=== PATIENT | female | born 1955 | race Caucasian/White ===

== ENCOUNTER → 2019-06-27 | Outpatient (CLI) | payer MEDICARE ==
--- NOTE | 2019-06-29 21:02 | PE ---
Nuclear medicine PET/CT HISTORY: Lung carcinoma, initial Patient received 12.5 mCi F-18 FDG intravenously in delayed scanning was performed from the skull bas e to the mid thighs. Localization and attenuation correction CT scan was performed. No current comparisons submitted Neck and chest: There is no supraclavicular or cervical adenopathy. No mediastinal, axillary, or navneet r adenopathy. There is no pleural pericardial effusion. There is a soft tissue nodule in the right up per lobe measuring approximately less than 1 cm, no associated hypermetabolic uptake. Minimal patchy density present at the posterior lateral right lung base is pleural-based. Thickened parenchymal band s may be indicative of underlying interstitial lung disease. No adrenal mass. No retroperitoneal adenopathy or liver mass. No suspicious hypermetabolic uptake. No ascites. Uterus and adnexal structures are not seen. Osseous structures are within normal limits. IMPRESSION: No suspicious hypermetabolic uptake. Findings in the chest is described.
== END | disposition home or self-care (01) ==
LOC: RADPETMAIN 11:02
PROVIDERS: ATTEND Internal Medicine Critical Care Medicine
DX: R91.1 Solitary pulmonary nodule (principal)
CPT/HCPCS: 78815; A9552

== ENCOUNTER → 2021-09-09 | Outpatient (CLI) | payer MEDICARE ==
--- NOTE | 2021-09-09 10:02 | PE ---
EXAMINATION TYPE: PET CT fusion skull to thigh DATE OF EXAM: 09/09/2021 COMPARISON: Prior PET/CT June 27, 2019 HISTORY: Solitary pulmonary nodule, recent abnormal CT. TECHNIQUE: Following the intravenous administration of 10.23 mCi of F-18 FDG, whole body images are performed from the skull base to the midthigh. Images are reviewed on the computer in the coronal, a xial, and sagittal planes. Reconstructed rotating images are created on independent workstation and reviewed on the computer. A localization and attenuation correction CT is performed in conjunction with the PET scan. Blood glucose level equals 98. SCAN: Initial Scan FINDINGS: SKULL BASE AND NECK: No new areas of abnormal hypermetabolic uptake. CHEST, MEDIASTINUM, AND HILAR REGION: Background mild underlying emphysematous changes redemonstrated . Grossly stable 9 mm right upper lobe nodule remains ametabolic axial image 69. More prominent perip heral nodular consolidation or less likely nodule measuring 3.3 x 2.3 cm in the posterior right lower lobe is mildly hypermetabolic favoring postinflammatory etiology. No additional areas of abnormal hypermetabolic uptake. ABDOMEN AND PELVIS: Normal excretion. No new suspicious areas of abnormal hypermetabolic uptake. No a drenal mass is noted. OSSEOUS STRUCTURES: No new suspicious areas of abnormal hypermetabolic uptake. OTHER CT: Atherosclerotic and ectatic abdominal aorta redemonstrated. Facet arthropathy in the lower lumbar spine is again seen. Uterus is surgically absent. IMPRESSION: Stable ametabolic 9 mm right upper lobe nodule. Worsening mildly hypermetabolic posterior right lower lobe nodular consolidation favors infectious or inflammatory etiology etiology. Correlat e clinically. Consider short-term follow-up CT in 2-3 months time to reassess based on clinical corre lation.
== END | disposition home or self-care (01) ==
LOC: RADPETMAIN 06:26
PROVIDERS: ATTEND Internal Medicine Critical Care Medicine
DX: R91.1 Solitary pulmonary nodule (principal)
CPT/HCPCS: 78815; A9552

== ENCOUNTER → 2022-12-15 | Outpatient (CLI) | payer MEDICARE ==
[2022-12-15 14:07] LABS: African American GFR (CKD) >90 (>60 ml/min/1.73 sqM); Blood Urea Nitrogen 14 mg/dL (7-17); Non-African American GFR(CKD) >90 (>60 ml/min/1.73 sqM)
--- NOTE | 2022-12-15 15:01 | CT ---
EXAMINATION TYPE: CT chest w con DATE OF EXAM: 12/15/2022 COMPARISON: PET/CT fusion 09/09/2021 HISTORY: f/u lung nodule. CT DLP: 260.0 mGycm Automated exposure control for dose reduction was used. TECHNIQUE: CT scan of the chest is performed with IV Contrast, patient injected with 90 mL of Isovue 300. MIP I mages are created on CT scanner and reviewed. 3D reconstructed images are created on an independent w orkstation and reviewed. FINDINGS: There is a stable well-circumscribed 10 to 11 mm nodule in the right upper lobe. There are persistent partially consolidative ill-defined density in the right lower lobe, superior se gment in the subpleural location. Given its persistence question of bronchoalveolar carcinoma should be considered. Biopsy might be indicated and clinical correlation is recommended. There are mild emphysematous changes. There are no suspicious masses or nodules in the left lung. There is no pleural effusion or pneumothorax. The great vessels chest are normal is no mediastinal, hilar or axillary adenopathy. Limited scanning through the upper abdomen reveals no gross abnormality. No focal osseous lesions are seen. IMPRESSION: 1. Persistent ill-defined consolidative/masslike density in the superior segment of the right lower l obe which was seen on the prior study dating back to 09/09/2021. There may be slight interval worsening . Neoplasm such as bronchoalveolar carcinoma should be considered. Clinical correlation is recommende d. Further workup is warranted. 2. Stable right upper lobe pulmonary nodule which is likely benign given its stability and low metabo lic uptake on prior PET scan.
== END | disposition home or self-care (01) ==
LOC: RADCTMAIN 13:11
PROVIDERS: ATTEND Internal Medicine Critical Care Medicine
DX: R91.1 Solitary pulmonary nodule (principal); R91.8 Other nonspecific abnormal finding of lung field
CPT/HCPCS: 82565; 84520; 71260; 36415; Q9967

== ENCOUNTER 2023-01-18 10:38 | Day surgery (SDC) | payer MEDICARE ==
[2023-01-16 10:40] VITALS: BMI 23.9
[~2023-01-18 10:38] MED LIST: DEXAMETHASONE SOD PHOSPHATE 4 MG/ML 1 ML VIAL IV ONE; HYDROmorphone 0.5 MG/0.5 ML SYRINGE IVP PRN; LACTATED RINGERS 1,000 ML IV SCH; LIDOCAINE 1% (10MG/ML) FOR IV START INTRADERMA PRN; ONDANSETRON 4 MG/2 ML VIAL IVP ONE; droPERidol 5 MG/2 ML VIAL IVP ONE
--- NOTE | 2023-01-18 11:44 | CT ---
EXAMINATION TYPE: CT chest wo con DATE OF EXAM: 01/18/2023 COMPARISON: 12/15/2022 HISTORY: ION bronch solitary pulmonary nodule CT DLP: 234.80 mGycm. Automated Exposure Control for Dose Reduction was Utilized. TECHNIQUE: CT scan of the thorax is performed without IV contrast. FINDINGS: LUNGS: Diffuse emphysematous changes. There is interlobular septal thickening compatible with pulmona ry fibrosis. Within the right upper lobe there is a 1.2 cm mass. There is consolidative changes involving the right lower lobe could be postinflammatory or postinfect ious. No sizable pleural effusion or pneumothorax. Pleural-based thickening at the right lung base fa vored over subpleural nodule. There is biapical pleural thickening or scarring with a 4 mm subpleural nodule.. MEDIASTINUM: Lack of IV contrast is noted to limit evaluation for mediastinal and especially hilar ad enopathy. There are no definitive greater than 1 cm hilar or mediastinal lymph nodes. No cardiomega ly or pericardial effusion is seen. Atherosclerotic change of the aorta including the region of the a ortic valve.. No significant Coronary artery calcification noted. OTHER: Small hiatal hernia. Thickening of the left adrenal gland. A mild prominence of the extrahepat ic common bile duct. Atrophic and degenerative change of the spine and there is diffuse demineralizat ion which could be on the basis of osteopenia. Underlying metastases not excluded. IMPRESSION: 1. There is a 1.2 cm mass in the right upper lobe slightly increased in size from prior exam. 2. Persistent right lower lobe consolidation could be on the basis of a sequela of pneumonia or infla mmatory changes. Underlying neoplastic process is not excluded. 3. Intra and extrahepatic biliary ductal dilation. 4. Pulmonary fibrosis with changes of COPD. Follow-up recommendations for incidental pulmonary nodules are per [employer] or [employer].
[2023-01-18] MEDS ORDERED: PROPOFOL 10 MG/ML 20 ML VIAL IV ONE (12:35)
[2023-01-18] MEDS ORDERED: ROCURONIUM 10 MG/ML (5 ML VIAL) IV ONE (12:35)
[2023-01-18] MEDS ORDERED: GLYCOPYRROLATE 0.2 MG/ML 2 ML VIAL ONE (12:35)
[2023-01-18] MEDS ORDERED: NEOSTIGMINE 1 MG/ML 10 ML VIAL ONE (12:35)
[2023-01-18] MEDS ORDERED: MIDAZOLAM 2 MG/2 ML VIAL ONE (12:35)
[2023-01-18] MEDS ORDERED: fentaNYL (PF) 50 MCG/ML 2 ML AMP ONE (12:35)
[2023-01-18] MEDS ORDERED: LIDOCAINE 2% (PF) 20 MG/ML 5 ML VIAL ONE (12:35)
[2023-01-18] MEDS ORDERED: SUCCINYLCHOLINE CHLORIDE 200 MG/10 ML VIAL IV ONE (12:35)
[2023-01-18] MEDS ORDERED: PHENYLEPHRINE-0.9% NACL SYG 1,000 MCG/10 ML SYRINGE ONE (12:35)
--- NOTE | 2023-01-18 14:20 | P.PCN ---
Date of Procedure: 01/18/23 Operative Findings: Operative Findings: Preoperative Diagnosis: Right upper lobe nodule Right lower lobe consolidation Postoperative Diagnosis: Right upper lobe nodule Right lower lobe consolidation Procedure(s) Performed: Flexible bronchoscopy Robotic-assisted bronchoscopy and addition to radial ultrasound evaluation of the lung right upper lone nodule and right lower lobe consolidation Robotic-assisted test monitor needle aspirate, transbronchial biopsies, transbronchial brushing of the Right upper lobe mass in addition to a bronchioloalveolar lavage Robotic-assisted test monitor needle aspirate, transbronchial biopsies, transbronchial brushing of the right lower lobe consolidation in addition to a bronchioloalveolar lavage Anesthesia: DARINELA Surgeon: Gregory Ledesma Estimated Blood Loss (ml): 0 Pathology: other Condition: stable Disposition: same day Operative Findings: A physical exam was performed. Informed consent was obtained from the patient after explaining all the risks (pneumothorax, life threatening bleeding, infection and adverse effects due to medications), benefits and alternatives to the procedure which the patient appeared to understand and so stated. The patient was connected to the monitoring devices. General anesthesia was induced and the patient was intubated by anesthesia. A final timeout was performed and the procedure confirmed by the attending staff bronchoscopist. The bronchoscope was inserted and the airway examined. The flexible bronchoscope was removed and the robotic bronchoscope was inserted. Registration was completed. I next guided the robotic bronchoscope using the navigation system into the Right upper lobe apical segment segment. Once in proper position, the bronchoscope was frozen. The radial EBUS probe was placed through the bronchoscope and confirmed abnormal u/s images vs normal lung. A needle was placed through the working channel and under fluoroscopic guidance, we sampled the area thought to have the mass twice. We then used a cloud biopsy pattern with ultrasound confirmation for 2 additional passes with the needle. U/S evaluation was then used to reconfirm location. Forceps were next introduced through working channel and extended the appropriate distance and 3 transbronchial biopsies were performed using fluoroscopic guidance. The u/s probe was then reinserted to confirm location. When confirmed this process was repeated for a total of 6 transbronchial biopsies. After reassessment with EBUS, a brush was placed through the extendable working channel for 1 pass with fluoroscopic guidance. U/S evaluation was then used to confirm location. 20ml of saline was then instilled into the area of the lesion. The robotic bronchoscope was removed and the airway inspected with a flexible bronchoscope and 10 ml of effluent from the BAL was collected. I next guided the robotic bronchoscope using the navigation system into the right lower lobe posterior segment. Once in proper position, the bronchoscope was frozen. The radial EBUS probe was placed through the bronchoscope and confirmed abnormal u/s images vs normal lung. U/S evaluation was then used to reconfirm location. Forceps were next introduced through working channel and extended the appropriate distance and 3 transbronchial biopsies were performed using fluoroscopic guidance. The u/s probe was then reinserted to confirm location. When confirmed this process was repeated for a total of 6 transbronchial biopsies. After reassessment with EBUS, a brush was placed through the extendable working channel for 1 pass with fluoroscopic guidance. U/S evaluation was then used to confirm location. 40 ml of saline was then instilled into the area of the lesion. The robotic bronchoscope was removed and the airway inspected with a flexible bronchoscope and 10 ml of effluent from the BAL was collected. The airways were inspected and cleared of secretions and blood. Fluoroscopic check for pneumothorax was negative upon completion of the procedure. There was 0 ml blood loss with the procedure. FINDINGS: 1.The airways appeared normal 2 Successful navigation, ultrasonographic identification, and biopsies of Right upper lobe nodule and right lower lobe consolidation RECOMMENDATIONS: Await pathology and cytology results The referring physician will be alerted to the results when available. The patient was advised to follow up with the referring physician with the biopsy results Patient will be called with results.
[2023-01-18 14:44] VITALS: TEMP 97
--- NOTE | 2023-01-18 14:45 | FL ---
EXAMINATION TYPE: FL bronchoscopy DATE OF EXAM: 01/18/2023 CLINICAL HISTORY: flouroscopy TECHNIQUE: Fluoroscopy. COMPARISON: None. FINDINGS: Fluoroscopic guidance was provided during procedure performed. Total dose area product (DA P) in uGy*m?, mGy*cm? (or similar: 11.492. IMPRESSION: As Above.
--- NOTE | 2023-01-18 14:54 | XR ---
EXAMINATION TYPE: XR chest 1V DATE OF EXAM: 01/18/2023 COMPARISON: 01/18/2023 HISTORY: post bronch TECHNIQUE: Single frontal view of the chest is obtained. FINDINGS: Diffuse emphysematous changes. There is interlobular septal thickening compatible with pul monary fibrosis. Within the right upper lobe there is a 1.2 cm mass. There is consolidative changes i nvolving the right perihilum. No sizable pleural effusion or pneumothorax. Pleural-based thickening a t the right lung base favored over subpleural nodule. There is biapical pleural thickening or scarrin g with a 4 mm subpleural nodule. No pneumothorax. IMPRESSION: COPD with right upper lobe nodule. Right perihilar consolidation.
[2023-01-18 15:11] VITALS: RESP 18
[2023-01-18 15:36] VITALS: BP 128/67; PULSE 69
== END 2023-01-18 15:50 | disposition home or self-care (01) ==
LOC: ORWHC2ENDO 10:38
PROVIDERS: ATTEND Internal Medicine Critical Care Medicine
DX: C34.31 Malignant neoplasm of lower lobe, right bronchus or lung (principal); J84.10 Pulmonary fibrosis, unspecified; J44.9 Chronic obstructive pulmonary disease, unspecified
CPT/HCPCS: 87798 ×3; 87496; 87498; 87529; 88305; 88342; 87502; 87634; 88341; 87070; 87205; 87116; 87102; 87206; 87635; 71045; 71250; 31628; 31629; 31623; 31624; J2250; J0330; J1100; J2710; J2405; J3010; J2704; J2001; J2371; S2900

== ENCOUNTER → 2023-02-16 | Outpatient (CLI) | payer MEDICARE ==
--- NOTE | 2023-02-19 14:20 | PE ---
EXAMINATION TYPE: PET CT fusion skull to thigh DATE OF EXAM: 02/16/2023 COMPARISON: CT chest 01/18/2023 Prior PET/CT: 09/09/2021 HISTORY: Lung cancer TECHNIQUE: Following the intravenous administration of 10.89 mCi of F-18 FDG, whole body images are performed from the skull base to the midthigh. Images are reviewed on the computer in the coronal, a xial, and sagittal planes. Reconstructed rotating images are created on independent workstation and reviewed on the computer. A localization and attenuation correction CT is performed in conjunction with the PET scan. DLP: 504.59 mGycm SCAN: Subsequent Blood glucose: 107 mg/dL Average Mediastinum SUV: 2.27 Average Liver SUV: 3.06 FINDINGS: NECK: Some mild uptake is in the neck, diminished from comparison. THORAX: Intermediate uptake is within the tiny nodule right upper lobe, image 89, SUV 1.45. Previous SUV 0.64 There is some intermediate uptake within a consolidation posterior lateral right midlung, example ramy ge 102, SUV 2.06. Previous SUV 3.07 ABDOMEN: No abnormal uptake PELVIS: No abnormal uptake OSSEOUS STRUCTURES: No abnormal uptake LOCALIZATION CT: Right upper lobe nodule is evident. Consolidation in the posterior lateral right mid lung is evident. COMPARISON: Some mild increase in the nodule may be present. The uptake within the posterior right fariba ng density is diminished. IMPRESSION: 1. Intermediate uptake within the posterior right consolidation and right upper lobe nodule. The cons olidation is diminished in SUV although slight increase is evident within the nodule. 2. No suspicious changes to suggest metastatic or recurrent lung cancer.
== END | disposition home or self-care (01) ==
LOC: RADPETMAIN 13:08
PROVIDERS: ATTEND Internal Medicine Critical Care Medicine
DX: R91.1 Solitary pulmonary nodule (principal); C34.90 Malignant neoplasm of unspecified part of unspecified bronchus or lung
CPT/HCPCS: 78815; A9552

== ENCOUNTER → 2023-03-09 | Outpatient (CLI) | payer MEDICARE ==
[2023-03-09 12:34] LABS: INR 0.9 (<1.2); Partial Thromboplastin Time 26.3 sec (22.0-30.0); Prothrombin Time 10.1 sec (10.0-12.5)
[2023-03-09 15:32] LABS: Appearance,Urine Turbid (Clear); Bilirubin,Urine Negative (Negative); Blood,Urine Small (Negative); Color,Urine Yellow (Yellow); Ketones,Urine Negative (Negative); Nitrite,Urine Positive (Negative); Specific Gravity,Urine 1.016 (1.001-1.030)
[2023-03-09 15:57] LABS: Basophils # (A) 0.08 X 10*3/uL (0.00-0.10); Basophils % (A) 0.7 %; Eosinophils % (A) 1.8 %; HCT 40.3 % (37.2-46.3); Lymphocytes # (A) 3.76 X 10*3/uL (0.90-5.00); Lymphocytes % (A) 34.6 %; MCH 29.7 pg (27.0-32.0); MCHC 32.3 g/dL (32.0-37.0); Mean Platelet Volume 9.4 FL (9.5-12.2); Monocytes # (A) 0.83 X 10*3/uL (0.20-1.00); Monocytes % (A) 7.6 %; NRBC Per 100 WBC 0 X 10*3/uL (0.00-0.01); Neutrophils # (A) 5.99 X 10*3/uL (1.80-7.70); Neutrophils % (A) 55.1 %; Platelet Count 387 X 10*3/uL (140-440); RBC 4.38 X 10*6/uL (4.10-5.20); RDW 12.7 % (11.5-14.5); WBC 10.88 X 10*3/uL (4.50-10.00)
[2023-03-09 16:11] LABS: Bacteria,Urine 4+ (None Seen)
[2023-03-09 16:29] LABS: Blood Urea Nitrogen 13.2 mg/dL (9.0-27.0); Carbon Dioxide 26.7 mmol/L (21.6-31.8); Chloride 103 mmol/L (96-109); Glucose 103 mg/dL (70-110); Potassium 4.3 mmol/L (3.5-5.5); Sodium 141 mmol/L (135-145)
== END | disposition home or self-care (01) ==
LOC: LABPAT 10:45
PROVIDERS: ATTEND Thoracic Surgery (Cardiothoracic Vascular Surgery)
DX: Z01.812 Encounter for preprocedural laboratory examination (principal); C34.90 Malignant neoplasm of unspecified part of unspecified bronchus or lung; R58 Hemorrhage, not elsewhere classified; R06.00 Dyspnea, unspecified; Z79.899 Other long term (current) drug therapy
CPT/HCPCS: 80051; 81001; 82565; 82947; 84520; 85025; 85610; 85730; 86850; 86900; 86901; 87086

== ENCOUNTER 2023-03-15 05:56 | Inpatient (IN) | payer MEDICARE ==
[2023-03-08 10:06] VITALS: BMI 24.4
[2023-03-15] MEDS ORDERED: LIDOCAINE 1% (10MG/ML) FOR IV START INTRADERMA PRN (06:15)
[2023-03-15] MEDS: LACTATED RINGERS 1,000 ML IV SCH (06:45)
[2023-03-15] MEDS: MIDAZOLAM 2 MG/2 ML VIAL IV PRN (06:54)
[2023-03-15] MEDS: ONDANSETRON 4 MG/2 ML VIAL IVP ONE (06:57)
[2023-03-15] MEDS: DEXAMETHASONE SOD PHOSPHATE 4 MG/ML 1 ML VIAL IV ONE (06:57)
[2023-03-15] MEDS ORDERED: GLYCOPYRROLATE 0.2 MG/ML 2 ML VIAL ONE (07:25)
[2023-03-15] MEDS ORDERED: fentaNYL (PF) 50 MCG/ML 2 ML AMP ONE (07:25)
[2023-03-15] MEDS ORDERED: LIDOCAINE 1% INJ 10MG/ML (20 ML MDV) ONE (07:25)
[2023-03-15] MEDS ORDERED: DEXAMETHASONE SOD PHOSPHATE 4 MG/ML 1 ML VIAL ONE (07:25)
[2023-03-15] MEDS ORDERED: PHENYLEPHRINE-0.9% NACL SYG 1,000 MCG/10 ML SYRINGE ONE (07:25)
[2023-03-15] MEDS ORDERED: ROPIVACAINE 5 MG/ML 30 ML VIAL ONE (07:25)
[2023-03-15] MEDS ORDERED: MIDAZOLAM 2 MG/2 ML VIAL ONE (07:25)
[2023-03-15] MEDS ORDERED: PROPOFOL 10 MG/ML 20 ML VIAL IV ONE (07:25)
[2023-03-15] MEDS ORDERED: SUCCINYLCHOLINE CHLORIDE 200 MG/10 ML VIAL IV ONE (07:25)
[2023-03-15] MEDS ORDERED: LABETALOL 5 MG/ML VIAL MDV ONE (07:25)
[2023-03-15] MEDS ORDERED: ROCURONIUM 10 MG/ML (5 ML VIAL) IV ONE (07:25)
[2023-03-15] MEDS ORDERED: NEOSTIGMINE 1 MG/ML 10 ML VIAL ONE (07:25)
[2023-03-15] MEDS ORDERED: SODIUM CHLORIDE 0.9% (PF) 10 ML VIAL ONE (07:25)
[2023-03-15] MEDS ORDERED: KETAMINE HCL IN 0.9 % NACL 50 MG/5 ML SYRINGE ONE (07:25)
[2023-03-15] MEDS: BUPIVACAINE (PF) 0.5% 30 ML VIAL SQ ONE ×3 (08:17→09:46)
[2023-03-15] MEDS: HYDROmorphone 0.5 MG/0.5 ML SYRINGE IVP PRN (10:52)
[2023-03-15] MEDS ORDERED: IPRATROPIUM-ALBUTEROL 3 ML NEB IH PRN (11:16)
[2023-03-15] MEDS ORDERED: OXYBUTYNIN XL 5 MG TAB.ER.24 PO PRN (11:16)
[2023-03-15] MEDS ORDERED: METOCLOPRAMIDE 5 MG/ML 2 ML VIAL IVP PRN (11:16)
[2023-03-15] MEDS ORDERED: bisacodyL 10 MG SUPP RECTAL PRN (11:16)
[2023-03-15] MEDS ORDERED: ONDANSETRON 4 MG/2 ML VIAL IVP PRN (11:16)
[2023-03-15] MEDS: MEPERIDINE 50 MG/ML SYRINGE IVP ONE (11:25)
[2023-03-15] MEDS: IPRATROPIUM-ALBUTEROL 3 ML NEB IH SCH (12:19)
[2023-03-15] MEDS: DEXTROSE 5%-0.45% NACL 1,000 ML IV SCH (12:31)
[2023-03-15] MEDS: KETOROLAC 15 MG/ML 1 ML VIAL IVP SCH (12:37)
--- NOTE | 2023-03-15 12:48 | XR ---
EXAMINATION TYPE: XR chest 1V DATE OF EXAM: 03/15/2023 COMPARISON: 01/18/2023 HISTORY: Status post lobectomy TECHNIQUE: Single frontal view of the chest is obtained. FINDINGS: Right-sided chest tube with less than 5% right. Underlying COPD and chronic lung disease. Elevated right hemidiaphragm. Subsegmental changes at the lung bases favor atelectasis or scarring. M ay be an additional pneumothorax component along the inferior medial aspect of the right hemithorax. Volume loss compatible with patient's history of right lower lobectomy. Interstitial changes suggest a component of chronic interstitial pulmonary fibrosis. Favor UIP type. Arthropathy of the shoulders and diffuse osteopenia. IMPRESSION: 1. Postsurgical changes with small right-sided pneumothorax. 2. Basilar atelectasis favored
[2023-03-15 12:51] LABS: HCT 40.2 % (34.0-46.0); HGB 12.8 gm/dL (11.4-16.0); Hypochromasia Slight; MCH 30.7 pg (25.0-35.0); MCHC 31.9 g/dL (31.0-37.0); MCV 96.3 fL (80.0-100.0); Mean Platelet Volume 7.6; Platelet Count 353 k/uL (150-450); RBC 4.17 m/uL (3.80-5.40); RDW 12.9 % (11.5-15.5)
--- NOTE | 2023-03-15 14:07 | P.OP ---
Date of Procedure: 03/15/23 Preoperative Diagnosis: Lung mass right lower lobe consistent with carcinoma Postoperative Diagnosis: Same Procedure(s) Performed: Robotic-assisted thoracoscopic right lower lobectomy with mediastinal lymph node dissection Anesthesia: JR Surgeon: Abelardo Lorenzo Agency Manager #1: Neeraj Delcid Estimated Blood Loss (ml): 20 IV fluids (ml): 1,600 Urine output (ml): 250 Pathology: other (Right lower lobe lung with frozen section of bronchial margin; lymph node stations R4, level 7, R8, R9, R 10, R 11 all for permanent section) Condition: stable Disposition: PACU Indications for Procedure: 67-year-old female with enlarging right lower lobe peripheral mass on serial computed tomography scan. PET scan showed uptake in the mass and no other abnormal uptake. CT-guided bronchoscopy demonstrated adenocarcinoma. EBUS was negative. Patient is ECOG level II. Patient was seen in consultation and offered surgery versus chemoradiation. She opted for surgery. Discussion was held as to whether we would try to additionally wedge this out in case it proved to be noninvasive carcinoma although it there was concern that due to the location it would be very difficult to wedge out. Consent for lobectomy was obtained. Operative Findings: Lung compliance was poor. Fissures were incomplete. The mass was somewhat diffuse and impossible to wedge out. Lymphadenopathy was present and appeared to be benign and anthracotic. Frozen section of the bronchial margin returned negative. Description of Procedure: Patient was brought to the operating room and placed supine on the operating table. General anesthesia was induced and double-lumen endotracheal tube was placed. Mcarthur catheter was placed. Tube was positioned with fiberoptic bronchoscopy and secured. Patient was turned to the left lateral decubitus position and appropriately positioned for robotic lobectomy. Right chest was sterilely prepped and draped. After appropriate timeout, the initial incision was made in the ninth interspace in the anterior axillary line and a 8 mm robotic port was placed. After confirming placement in the pleural space, CO2 insufflation was begun. 212 mm ports were placed anterior and posterior to the initial port in a similar interspace. A second 8 mm port was placed in the fifth interspace posteriorly. Working port was placed between the initial camera port and the more posterior 12 mm port at the level of the diaphragm. The robot was docked. After noting that it would not really be possible to perform a wedge resection, we did some dissection in the fissure particularly anteriorly. We then took down the inferior pulmonary ligament and continued dissection posteriorly up to the level of the azygos vein. Lymph nodes stations [id number] and level 7 were dissected out and sent for permanent section. We now encircled the inferior pulmonary vein and ligated and divided it with a robotic vascular stapler. Dissection was carried onto the bronchus. The lower lobe bronchus was dissected out. Surrounding R 11 lymph nodes were resected and sent for permanent section. Once we encircled the lower lobe bronchus it was ligated and divided with a robotic read stapler. The main branch the pulmonary artery was now visualized. Some further R 11 lymph nodes were resected around it and we encircled the main branch of the PDA to the lower lobe and ligated and divided it with a robotic vascular stapler. The good visualization of the superior segmental branch of the pulmonary artery and encircled that began resecting further R 11 lymph nodes. This was also ligated and divided with a robotic vascular stapler. We now were able to complete the fissures with multiple firings of the robotic blue stapler. Lobectomy specimen was placed in an Endo Catch bag and pulled back toward the working port. Dissection was continued at the superior aspect of the hilum and the R 10 lymph nodes were resected. Dissection was carried further above the azygos vein and the R4 lymph nodes were resected. This point the robot was undocked. A working port incision was enlarged and the lobectomy specimen removed in the Endo Catch bag and sent for frozen section of the bronchial margin which returned negative. The chest was irrigated with warm water and checked for air leaks which were negative. Good hemostasis was noted throughout. 28-Syrian chest tube was placed through separate stab incision and positioned posterior apically. Was secured with 0 Ethibond suture. Incisions were now closed with layers of Vicryl suture. Skin glue and dry sterile dressings were applied. Rib blocks were performed posteriorly at the level of the incisions with half percent Marcaine. Patient was turned supine and extubated and transferred to recovery room in stable condition.
[2023-03-15] MEDS: HEPARIN SODIUM,PORCINE 5,000 UNIT/ML 1 ML VIAL SQ SCH (15:37)
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
--- NOTE | 2023-03-15 20:34 | P.ANPRN ---
Procedure Note - Anesthesia - Nerve Block Performed Right Erector Spinae Single Time Out Performed: Yes Date of Procedure: 03/15/23 Procedure Start Time: Procedure Stop Time: Location of Patient: PreOp Indication: Acute Post-Operative Pain, Requested by Surgeon Sedation Type: Sedate with meaningful contact maintained Preparation: Sterile Prep Position: Sitting Needle Types: Pajunk Needle Gauge: 18 Ultrasound used to visualize needle placement: Yes Ultrasound used to observe medication spread: Yes Blood Aspirated: No Pain Paresthesia on Injection Noted: No Resistance on Injection: Normal Image Stored and Saved: Yes Events: Uneventful and Well Tolerated (Ropivacaine 0.5% 15 cc plus normal saline 10 cc plus dexamethasone 4 mg)
[2023-03-15] MEDS: FORMOTEROL FUMARATE 20 MCG/2 ML NEBU INHALATION SCH (21:33)
[2023-03-15] MEDS: MORPHINE SULFATE ER 30 MG TABLET PO SCH (22:11)
[2023-03-15] MEDS: lisinopriL 5 MG TAB PO SCH (22:52)
[2023-03-15] MEDS: ATORVASTATIN 10 MG TAB PO SCH (22:52)
[2023-03-15] MEDS: oxyCODONE-APAP 10-325MG 1 EACH TAB PO PRN (23:12)
[2023-03-16] MEDS: PANTOPRAZOLE 40 MG TABLET PO SCH (06:22)
--- NOTE | 2023-03-16 08:24 | XR ---
EXAMINATION TYPE: XR chest 1V portable DATE OF EXAM: 03/16/2023 COMPARISON: 03/15/2023 HISTORY: Postop TECHNIQUE: Single frontal view of the chest is obtained. FINDINGS: Near-complete resolution of tiny right-sided pneumothorax. Volume loss compatible with rec ent surgery. Chest tube in position with basilar atelectasis. Underlying COPD. Arthropathy of the hugo ulders with calcific tendinosis on the right suspected. Degenerative change of the spine. IMPRESSION: 1. Postoperative change with near complete resolution of tiny right-sided pneumothorax.
[2023-03-16 08:41] LABS: African American GFR (CKD) 86 (>60 ml/min/1.73 sqM); Anion Gap 5 mmol/L; Blood Urea Nitrogen 22 mg/dL (7-17); Calcium 8.7 mg/dL (8.4-10.2); Carbon Dioxide 25 mmol/L (22-30); Chloride 106 mmol/L (98-107); Glucose 106 mg/dL (74-99); Non-African American GFR(CKD) 75 (>60 ml/min/1.73 sqM); Potassium 3.9 mmol/L (3.5-5.1); Sodium 136 mmol/L (137-145)
[2023-03-16] MEDS: CYANOCOBALAMIN 500 MCG TAB PO SCH (09:17)
[2023-03-16] MEDS: CHOLECALCIFEROL 125 MCG (5000 IU) TABLET PO SCH (09:17)
[2023-03-16] MEDS: ASCORBIC ACID 500 MG TAB PO SCH (09:17)
[2023-03-16 09:23] LABS: Basophils % (A) 0 %; Eosinophils % (A) 0 %; HCT 36.7 % (34.0-46.0); Lymphocytes % (A) 19 %; MCH 30.7 pg (25.0-35.0); MCHC 32.6 g/dL (31.0-37.0); MCV 94.1 fL (80.0-100.0); Mean Platelet Volume 7.7; Monocytes % (A) 7 %; Neutrophils # (A) 11.3 k/uL (1.3-7.7); Neutrophils % (A) 73 %; Platelet Count 352 k/uL (150-450); RDW 12.7 % (11.5-15.5); WBC 15.5 k/uL (3.8-10.6)
--- NOTE | 2023-03-16 09:45 | P.PN ---
Subjective Progress Note Date: 03/16/23 Principal diagnosis: Lung mass right lower lobe consistent with carcinoma. Previous medical history of hypertension, hyperlipidemia, fibromyalgia, and chronic tobacco dependence Robotic-assisted thoracoscopic right lower lobectomy with mediastinal lymph node dissection The patient was seen and examined this morning sitting up in recliner on the cardiac stepdown unit in no acute distress. Remains in sinus rhythm, hemodynamically stable. States her postsurgical pain is well-controlled on current medication regimen, denies shortness of breath. Currently on room air with oxygen saturation in the high 90s. Right pleural chest tube present to [facility] with good tidaling, no airleak present and minimal thin serous drainage overnight. Chest x-ray reviewed. No other new concerns. Objective - Vital Signs Vital signs: Vital Signs Temp 98.2 F 03/16/23 03:42 Pulse 68 03/16/23 08:46 Resp 16 03/16/23 08:46 BP 132/61 03/16/23 03:42 Pulse Ox 97 03/16/23 08:32 FiO2 Intake & Output 03/15/23 03/16/23 03/16/23 18:59 06:59 18:59 Intake Total 2440 240 Output Total 352 50 Balance 2088 -50 240 Intake: IV 1900 Oral 540 240 Output: Chest Tube Drainage 82 50 Chest Tube Lateral Chest 82 50 Urine 150 Estimated Blood Loss 120 Other: Voiding Method Toilet - Exam CONSTITUTIONAL: Appears comfortable, cooperative, no acute distress RESPIRATORY: Lungs sounds diminished bilaterally. Respirations even, nonlabored. Currently on room air with oxygen saturation 97%. Able to achieve 750 mL on incentive spirometry. Strong cough. CARDIOVASCULAR: S1, S2 present. Regular rate and rhythm, sinus rhythm on telemetry. Palpable peripheral pulses bilaterally. No edema present. No calf pain or tenderness noted. SCDs present. GASTROINTESTINAL: Abdomen soft, nontender, nondistended. Active bowel sounds present 4 quadrants. Tolerating diet. Positive flatus GENITOURINARY: Continues to void clear, yellow urine INTEGUMENTARY: Skin is warm and dry with evidence of good perfusion. Thoracic incision well approximated and covered with dry intact dressing. NEUROLOGIC: Cranial nerves II through XII intact MUSKULOSKELETAL: Able to move all extremities, strength equal bilaterally, gait normal PSYCHIATRIC: Alert and oriented to person place and time, appropriate affect, intact judgment and insight INVASIVE LINES AND TUBES: [facility], no air leak present, 50 mL thin serous drainage overnight, 350 mL since surgery - Allied health notes Allied health notes reviewed: nursing - Labs CBC & Chem 7: 03/16/23 07:31 03/16/23 07:31 Labs: Abnormal Lab Results - Last 24 Hours (Table) 03/15/23 03/16/23 03/16/23 Range/Units 12:38 07:31 07:31 WBC 18.0 H 15.5 H (3.8-10.6) k/uL Neutrophils # 11.3 H (1.3-7.7) k/uL Sodium 136 L (137-145) mmol/L BUN 22 H (7-17) mg/dL Glucose 106 H (74-99) mg/dL - Imaging and Cardiology Chest x-ray: report reviewed, image reviewed Assessment and Plan Assessment: Lung mass right lower lobe consistent with carcinoma, status post robotic assisted thoracoscopic right lower lobectomy with mediastinal lymph node dissection History of hypertension Hyperlipidemia Fibromyalgia Chronic tobacco dependence, preoperative FEV1 81% of predicted with DLCO 50% of predicted Plan: Right pleural chest tube discontinued without incident Will repeat chest x-ray in 2 hours, if stable may discharge to home Continue current medication regimen Encourage incentive spirometry use Bronchodilators per pulmonology Pain control with current medication regimen Increase activity as tolerated Smoking cessation counseling and education reviewed with the patient, she was given 1 800 QUIT-NOW hotline number Discharge planning in progress, anticipate discharge to home this afternoon versus tomorrow morning More recommendations to follow
--- NOTE | 2023-03-16 11:15 | XR ---
EXAMINATION TYPE: XR chest 2V DATE OF EXAM: 03/16/2023 COMPARISON: 03/16/2023 TECHNIQUE: PA and lateral views submitted. HISTORY: Post chest tube removal FINDINGS: Interval development of a large air-fluid level in the right lower lung. There is now a pleural refle ction at the right lung apex compatible with pneumothorax. Constellation of findings compatible hydro pneumothorax. Underlying COPD. Heart size is mildly prominent. Volume loss on the right compatible pr evious lobectomy. IMPRESSION: 1. Chest tube removal with interval development of the hydropneumothorax with a large air-fluid level seen overlying the right hemithorax.
--- NOTE | 2023-03-16 11:53 | P.PN ---
Subjective Progress Note Date: 03/16/23 This is a 67-year-old female patient who underwent a robotic assisted thoracoscopic right lower lobectomy with mediastinal lymph node dissection. The patient was recent diagnosed having right lower lobe adenocarcinoma. The patient was told to have an early stage without evidence of any mediastinal lymp hadenopathy. The patient had a preop FEV1 of 81% of predicted. Based on that, the patient was referred for lung resection. Note that her CAT scan of the chest showed a right lower lobe consolidation in addition to a 1.2 cm right upper lobe pulmonary nodule. The PET scan also showed some uptake within the right lung consolidation. The right upper lobe pulmonary nodule was biopsied in it turned out to be a hamartoma. Based on that, we will proceed with surgery. The patient is doing well for now. The patient has a right-sided chest tube in place. No significant air leak and output from the chest tube is minimal and the postop chest x-ray is showing a small right apical pneumothorax along with some atelectatic change in lung base bilaterally. The patient is currently on 2 L of oxygen by nasal cannula with a pulse ox of 98%. Communicating alert and awake. No other significant complaints otherwise for now. On today's evaluation of 03/16/2023, seen the patient for a follow-up. The patient is doing extremely well. No specific complaints. No respiratory difficulties. The chest x-ray was done this morning showed no acute abnormalities. It showed no evidence of any pneumothorax. Output from the chest tube was minimal. Based on that, the chest tube was removed by the cardio thoracic surgeon and repeat chest x-ray is to follow. Meanwhile, the patient has no specific complaints. The patient is calm and comfortable. Clinically stable and hemodynamically stable. The white cell count of 15.5 with a hemoglobin of 12 and a platelet count of 352. BUN is at 22 with a creatinine of 0.8 and his sodium level is at 136. The patient is currently postop day #1 following a right lower lobe resection. Objective - Vital Signs Vital signs: Vital Signs Temp 98.2 F 03/16/23 03:42 Pulse 68 03/16/23 08:46 Resp 16 03/16/23 08:46 BP 132/61 03/16/23 03:42 Pulse Ox 97 03/16/23 08:32 FiO2 Intake & Output 02/09/2803/16/23 03/16/23 18:59 06:59 18:59 Intake Total 2440 240 Output Total 352 50 Balance 2088 -50 240 Intake: IV 1900 Oral 540 240 Output: Chest Tube Drainage 82 50 Chest Tube Lateral Chest 82 50 Urine 150 Estimated Blood Loss 120 Other: Voiding Method Toilet - Exam General appearance the patient is calm and comfortable no acute distress. Currently on room air oxygen Head exam was generally normal. There was no scleral icterus or corneal arcus. Mucous membranes were moist. Neck was supple and without jugular venous distension, thyromegaly, or carotid bruits. Carotids were easily palpable bilaterally. There was no adenopathy. Lung sounds are diminished in the right compared to the left and the patient has a surgical wound over the right chest which is essentially dry and clean and the patient has right-sided chest tube has been removed Cardiac exam revealed the PMI to be normally situated and sized. The rhythm was regular and no extrasystoles were noted during several minutes of auscultation. The first and second heart sounds were normal and physiologic splitting of the second heart sound was noted. There were no murmurs, rubs, clicks, or gallops. Abdominal exam revealed normal bowel sounds. The abdomen was soft, non-tender, and without masses, organomegaly, or appreciable enlargement of the abdominal aorta. Examination of the extremities revealed easily palpable radial, femoral and pedal pulses. There was no cyanosis, clubbing or edema. Examination of the skin revealed no evidence of significant rashes, suspicious appearing nevi or other concerning lesions. Neurologically, the patient is awake and alert and the patient does not have any focal neurological deficit. Cranial nerves are essentially intact. - Labs CBC & Chem 7: 03/16/23 07:31 03/16/23 07:31 Labs: Abnormal Lab Results - Last 24 Hours (Table) 03/15/23 03/16/23 03/16/23 Range/Units 12:38 07:31 07:31 WBC 18.0 H 15.5 H (3.8-10.6) k/uL Neutrophils # 11.3 H (1.3-7.7) k/uL Sodium 136 L (137-145) mmol/L BUN 22 H (7-17) mg/dL Glucose 106 H (74-99) mg/dL Assessment and Plan Plan: Early stage adenocarcinoma of the lung and the patient is post robotic assisted right lower lobe lobectomy with mediastinal lymph node dissection and the patient is currently postop day # 1 the patient's preop FEV1 was in order of 81% of predicted. The right-sided chest that was removed awaiting follow-up chest x-ray. Clinically stable and the patient denies having any any respiratory difficulties at this point in time. 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 The patient also takes MS Contin 30 mg twice a day Smoking cessation counseling Will continue to follow
[2023-03-16] MEDS: FUROSEMIDE 10 MG/ML 4 ML VIAL IV STA (12:53)
[2023-03-17 03:52] VITALS: RESP 16
--- NOTE | 2023-03-17 07:15 | XR ---
EXAMINATION TYPE: XR chest 2V DATE OF EXAM: 03/17/2023 COMPARISON: 03/16/2023 HISTORY: Right hydropneumothorax follow-up TECHNIQUE: Frontal and lateral views of the chest are obtained. FINDINGS: Allowing for differences in technique, there is been no interval change in the right hydropneumothora x. There is right middle lobe atelectasis. The left lung remains clear. The heart size is normal and the vasculature is not congested. The osseous structures are intact. IMPRESSION: No change in the right hydropneumothorax and right middle lobe atelectasis.
--- NOTE | 2023-03-17 08:36 | P.DS ---
Providers Date of admission: 03/15/23 05:56 Expected date of discharge: 03/17/23 Attending physician: Abelardo Lorenzo Consults: 03/15/23 11:16 Consult Physician Routine Consulting Provider: Gregory Ledesma Consult Reason/Comments: Pulmonary Management Do you want consulting provider notified?: Yes Primary care physician: [facility] Course: FINAL DIAGNOSIS: Lung mass right lower lobe consistent with carcinoma, status post robotic assisted thoracoscopic right lower lobectomy with mediastinal lymph node dissection History of hypertension Hyperlipidemia Fibromyalgia Chronic tobacco dependence, preoperative FEV1 81% of predicted with DLCO 50% of predicted PRINCIPAL PROCEDURE: Robotic-assisted thoracoscopic right lower lobectomy with mediastinal lymph node dissection HISTORY OF PRESENT ILLNESS: This is a 67-year-old female who follows outpatient with Dr. Branch for primary care and Dr. Ledesma for pulmonology. She is a lifelong smoker and had been following with pulmonology for some time related to a groundglass infiltrate in the right lower lobe as well as a stable right upper lobe lung nodule. Recently the groundglass infiltrate enlarged and developed some more solid component to it and she underwent robotic bronchoscopy. The right upper lobe lesion was biopsied and was hematoma. The right lower lobe groundglass infiltrate with its more solid component was biopsied and shown to be adenocarcinoma. PET scan was obtained and showed only mild uptake in the tumor with SUV around 3. There was no evidence of metastasis by PET and CT scan did not demonstrate any lymphadenopathy. The patient was referred to Dr. Lorenzo from cardiothoracic surgery. She was recommended to undergo robotic assisted right lower lobectomy. The usual perioperative course was discussed in detail with the patient and her family, all risks and benefits were explained, all questions were answered, and consent was obtained to proceed with surgery. The patient was scheduled for elective surgery at the earliest possible date. HOSPITAL COURSE: The patient was brought to the hospital on 03/15/23, taken to the preoperative area, prepared in the usual fashion, and subsequently taken to the operating room where Dr. Lorenzo performed robotic assisted thoracoscopic right lower lobectomy with mediastinal lymph node dissection. Upon completion of surgery the patient was extubated and taken to the recovery room for hemodynamic monitoring. She was eventually admitted to 3 S. cardiac stepdown unit. She had no airleak in her chest tube and it was placed to waterseal the night of surgery. The following morning there was no airleak present, chest x-ray was stable and her pleural chest tube was discontinued without incident. Follow-up chest x-ray later that day as well as the following morning were stable. She remained on room air with excellent oxygen saturation, was tolerating oral diet, her pain was controlled, and she was ready to be discharged to home on postoperative day #2. She received written and verbal instruction regarding her medications, activity restrictions, signs and symptoms requiring physician notification, and follow-up appointments. Patient Condition at Discharge: Stable Plan - Discharge Summary Discharge Rx Participant: Yes New Discharge Prescriptions: Continue Ascorbic Acid [Vitamin C] 500 mg PO DAILY Cyanocobalamin (Vitamin B-12) [Vitamin B-12] 1,000 mcg PO DAILY Morphine Sulfate ER [Ms Contin] 7.5 mg PO Q12HR oxyBUTYnin chloride [oxyBUTYnin chloride ER] 5 mg PO DAILY PRN PRN Reason: Takes if not going to be home Turmeric Root Extract [Turmeric] 500 mg PO DAILY ALPRAZolam [Xanax] 0.25 mg PO DAILY PRN PRN Reason: Anxiety Cholecalciferol (Vitamin D3) [Vitamin D3 (125 MCG = 5,000 IU)] 125 mcg PO DAILY lisinopriL [Zestril] 5 mg PO HS Omeprazole 40 mg PO QAM oxyCODONE-APAP 10-325MG [Percocet 10-325 mg] 1 tab PO BID PRN PRN Reason: Pain Simvastatin 5 mg PO HS Laxative - Otc 1 tab PO DAILY PRN PRN Reason: Constipation Discharge Medication List ALPRAZolam [Xanax] 0.25 mg PO DAILY PRN 01/16/23 [History] Ascorbic Acid [Vitamin C] 500 mg PO DAILY 01/16/23 [History] Cholecalciferol (Vitamin D3) [Vitamin D3 (125 MCG = 5,000 IU)] 125 mcg PO DAILY 01/16/23 [History] Cyanocobalamin (Vitamin B-12) [Vitamin B-12] 1,000 mcg PO DAILY 01/16/23 [History] Morphine Sulfate ER [Ms Contin] 7.5 mg PO Q12HR 01/16/23 [History] Omeprazole 40 mg PO QAM 01/16/23 [History] Simvastatin 5 mg PO HS 01/16/23 [History] Turmeric Root Extract [Turmeric] 500 mg PO DAILY 01/16/23 [History] lisinopriL [Zestril] 5 mg PO HS 01/16/23 [History] oxyBUTYnin chloride [oxyBUTYnin chloride ER] 5 mg PO DAILY PRN 01/16/23 [History] oxyCODONE-APAP 10-325MG [Percocet 10-325 mg] 1 tab PO BID PRN 01/16/23 [History] Laxative - Otc 1 tab PO DAILY PRN 03/08/23 [History] Follow up Appointment(s)/Referral(s): Abelardo Lorenzo MD [STAFF PHYSICIAN] - 03/29/23 1:00 pm Mark Branch MD [Primary Care Provider] - As Needed Gregory Ledesma MD [STAFF PHYSICIAN] - 03/26/23 2:00 pm Ambulatory/Diagnostic Orders: XR chest 2V [RAD.AMB] Facility: [facility], Location: [facility] Activity/Diet/Wound Care/Special Instructions: DISCHARGE INSTRUCTIONS: 1. No driving for 2 weeks, or until physician gives their ok. 2. No lifting, pushing, or pulling more than 10 pounds for 2 weeks. The physic collette will advise of any restriction changes. 3. Continue pain control per as needed orders 4. Continue with incentive spirometry and splinting until otherwise directed by the physician. 5. Leave chest tube dressing for 48 hours. After that, remove all dressings and shower daily. 6. Routine incision care. No powders, lotions, ointments on incisions. 7. Please call surgeon/[facility] [employer] for temp greater than 101 F or purulent drainage from incisions. 8. Smoking cessation counseling and program information provided. Quitting smoking is the most important step you can take to improve your health. For additional information and assistance to quit smoking, please call the [place] tobacco quit line (1-248-SVEN-NOW/ ) or online: https://www.[place].gov/[facility]/nwdw-wy-shvaken/chronicdis eases/tobacco/qiv-oc-edsa-tobacco OBTAIN CHEST X-RAY AT THE HOSPITAL PRIOR TO APPOINTMENT WITH DR. LORENZO Discharge Disposition: HOME SELF-CARE
[2023-03-17 08:52] VITALS: BP 166/73; PULSE 71; TEMP 97.4
[2023-03-17 08:58] LABS: HCT 35.9 % (34.0-46.0); MCH 31.5 pg (25.0-35.0); MCHC 33.4 g/dL (31.0-37.0); MCV 94.3 fL (80.0-100.0); Mean Platelet Volume 7.7; Platelet Count 334 k/uL (150-450); RBC 3.81 m/uL (3.80-5.40); RDW 13.1 % (11.5-15.5); WBC 14.8 k/uL (3.8-10.6)
[2023-03-17 09:19] LABS: African American GFR (CKD) >90 (>60 ml/min/1.73 sqM); Anion Gap 8 mmol/L; Blood Urea Nitrogen 32 mg/dL (7-17); Calcium 9.2 mg/dL (8.4-10.2); Carbon Dioxide 24 mmol/L (22-30); Chloride 106 mmol/L (98-107); Glucose 137 mg/dL (74-99); Non-African American GFR(CKD) 84 (>60 ml/min/1.73 sqM); Potassium 4.2 mmol/L (3.5-5.1); Sodium 138 mmol/L (137-145)
--- NOTE | 2023-03-17 11:24 | P.PN ---
Subjective Progress Note Date: 03/17/23 This is a 67-year-old female patient who underwent a robotic assisted thoracoscopic right lower lobectomy with mediastinal lymph node dissection. The patient was recent diagnosed having right lower lobe adenocarcinoma. The patient was told to have an early stage without evidence of any mediastinal lymp hadenopathy. The patient had a preop FEV1 of 81% of predicted. Based on that, the patient was referred for lung resection. Note that her CAT scan of the chest showed a right lower lobe consolidation in addition to a 1.2 cm right upper lobe pulmonary nodule. The PET scan also showed some uptake within the right lung consolidation. The right upper lobe pulmonary nodule was biopsied in it turned out to be a hamartoma. Based on that, we will proceed with surgery. The patient is doing well for now. The patient has a right-sided chest tube in place. No significant air leak and output from the chest tube is minimal and the postop chest x-ray is showing a small right apical pneumothorax along with some atelectatic change in lung base bilaterally. The patient is currently on 2 L of oxygen by nasal cannula with a pulse ox of 98%. Communicating alert and awake. No other significant complaints otherwise for now. On today's evaluation of 03/16/2023, seen the patient for a follow-up. The patient is doing extremely well. No specific complaints. No respiratory difficulties. The chest x-ray was done this morning showed no acute abnormalities. It showed no evidence of any pneumothorax. Output from the chest tube was minimal. Based on that, the chest tube was removed by the cardio thoracic surgeon and repeat chest x-ray is to follow. Meanwhile, the patient has no specific complaints. The patient is calm and comfortable. Clinically stable and hemodynamically stable. The white cell count of 15.5 with a hemoglobin of 12 and a platelet count of 352. BUN is at 22 with a creatinine of 0.8 and his sodium level is at 136. The patient is currently postop day #1 following a right lower lobe resection. On today's evaluation of 03/17/2023, I am seeing the patient for a follow-up. The patient is doing well. No specific complaints. Surgical wound is dry clean and intact in the right-sided chest that was minimal. The chest x-ray showing his right-sided hydropneumothorax which is essentially stable and unchanged compared to yesterday. The patient remains on room air oxygen. Using incentive spirometer. No other new complaints for now. She is ambulating. Labs from [facility] shows a white cell count 14.8, hemoglobin 12 and the platelet count of 334, BUN is 32 with a creatinine 0.7 and sodium levels of 138. Objective - Vital Signs Vital signs: Vital Signs Temp 97.4 F L 03/17/23 08:27 Pulse 71 03/17/23 08:27 Resp 16 03/17/23 08:27 BP 166/73 03/17/23 08:27 Pulse Ox 97 03/17/23 08:27 FiO2 Intake & Output 03/16/23 03/17/23 03/17/23 18:59 06:59 18:59 Intake Total 480 260 Balance 480 260 Weight 74.9 kg Intake: IV 20 Invasive Line 2 10 Invasive Line 3 10 Oral 480 240 Other: Voiding Method Toilet Toilet Toilet - Exam General appearance the patient is calm and comfortable no acute distress. Currently on room air oxygen Head exam was generally normal. There was no scleral icterus or corneal arcus. Mucous membranes were moist. Neck was supple and without jugular venous distension, thyromegaly, or carotid bruits. Carotids were easily palpable bilaterally. There was no adenopathy. Lung sounds are diminished in the right compared to the left and the patient has a surgical wound over the right chest which is essentially dry and clean and the patient has right-sided chest tube has been removed Cardiac exam revealed the PMI to be normally situated and sized. The rhythm was regular and no extrasystoles were noted during several minutes of auscultation. The first and second heart sounds were normal and physiologic splitting of the second heart sound was noted. There were no murmurs, rubs, clicks, or gallops. Abdominal exam revealed normal bowel sounds. The abdomen was soft, non-tender, and without masses, organomegaly, or appreciable enlargement of the abdominal aorta. Examination of the extremities revealed easily palpable radial, femoral and pedal pulses. There was no cyanosis, clubbing or edema. Examination of the skin revealed no evidence of significant rashes, suspicious appearing nevi or other concerning lesions. Neurologically, the patient is awake and alert and the patient does not have any focal neurological deficit. Cranial nerves are essentially intact. - Labs CBC & Chem 7: 03/17/23 08:36 03/17/23 08:36 Labs: Abnormal Lab Results - Last 24 Hours (Table) 03/16/23 03/16/23 Range/Units 07:31 07:31 WBC 15.5 H (3.8-10.6) k/uL Neutrophils # 11.3 H (1.3-7.7) k/uL Sodium 136 L (137-145) mmol/L BUN 22 H (7-17) mg/dL Glucose 106 H (74-99) mg/dL Assessment and Plan Plan: Early stage adenocarcinoma of the lung and the patient is post robotic assisted right lower lobe lobectomy with mediastinal lymph node dissection and the patient is currently postop day # 2 the patient's preop FEV1 was in order of 81% of predicted. The right-sided chest that was removed awaiting follow-up chest x-ray. Clinically stable and the patient denies having any any respiratory difficulties at this point in time. The most chest x-ray following the removal of the chest tube shows a stable right-sided hydropneumothorax. Clinically asymptomatic. The findings are stable compared to yesterday. 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 There is a stable hydropneumothorax on the right. This is a postsurgical change. Right-sided chest tube was removed Patient is currently on room air oxygen Incentive spirometer Smoking cessation counseling Bronchodilators with Prudence rodriguez Pain control with Toradol and Percocet as needed. The patient also takes MS Contin 30 mg twice a day The patient to be discharged home today to be followed up with me on an outpatient basis.
== END 2023-03-17 11:12 | disposition home or self-care (01) | DRG 164 ==
LOC: 2ORMAIN 05:56 → 3SCARD 10:41
PROVIDERS: ADMIT Thoracic Surgery (Cardiothoracic Vascular Surgery); ATTEND Thoracic Surgery (Cardiothoracic Vascular Surgery)
PROC: 07B74ZX Excision of Thorax Lymphatic, Percutaneous Endoscopic Approach, Diagnostic (ICD-10-PCS; 2023-03-15)
PROC: 8E0W8CZ Robotic Assisted Procedure of Trunk Region, Via Natural or Artificial Opening Endoscopic (ICD-10-PCS; 2023-03-15)
PROC: 3E0T3BZ Introduction of Anesthetic Agent into Peripheral Nerves and Plexi, Percutaneous Approach (ICD-10-PCS; 2023-03-15)
PROC: 3E0T33Z Introduction of Anti-inflammatory into Peripheral Nerves and Plexi, Percutaneous Approach (ICD-10-PCS; 2023-03-15)
PROC: 0BTF4ZZ Resection of Right Lower Lung Lobe, Percutaneous Endoscopic Approach (ICD-10-PCS; principal; 2023-03-15 07:30)
DX: C34.31 Malignant neoplasm of lower lobe, right bronchus or lung (principal); J93.9 Pneumothorax, unspecified; Q85.9 Phakomatosis, unspecified; I10 Essential (primary) hypertension; E78.5 Hyperlipidemia, unspecified; M79.7 Fibromyalgia; G62.9 Polyneuropathy, unspecified; G89.29 Other chronic pain; F17.210 Nicotine dependence, cigarettes, uncomplicated; Z71.6 Tobacco abuse counseling
CPT/HCPCS: 64999; 71045; 71046; 80048; 85025; 85027; 88305; 88309; 88313; 88331; 94640; 94760

== ENCOUNTER → 2023-09-19 | Outpatient (CLI) | payer MEDICARE ==
--- NOTE | 2023-10-12 21:42 | CT ---
Patient: Anna Vaughan Ordering Physician: Unknown, Unknown ID: [id number] Phone, Pager: Phone: N /A Pager: N/A : [phone] Age/Gender: 67Y, F Primary Location: N/A Procedure: CT Chest w Contrast Study Date: 09/19/2023 4:40:00 PM EXAMINATION TYPE: CT angio chest CT DLP: 251 mGycm, Automated exposure control for dose reduction was used. DATE OF EXAM: 09/26/2023 9:37 AM COMPARISON: 12/15/2022, 02/16/2023 CLINICAL INDICATION: Malignant neoplasm, lung cancer TECHNIQUE/CONTRAST: CTA scan of the thorax is performed with IV Contrast, patient injected with 100 mL of Isovue 370, MIP images are created and reviewed these are created on a separate workstation.. FINDINGS: Lungs/Pleura: No evidence of focal consolidation, pleural effusion or pneumothorax. Airway: Large airways are patent. Heart: The heart is mildly enlarged for size. Atherosclerosis of the arterial vasculature. Vasculature: No evidence for intramural hematoma on noncontrast imaging. No evidence of intimal flap to suggest dissection. No aneurysm identified. Scattered atherosclerotic disease. Mediastinum: Rightward shift of the mediastinum. Right midlung pulmonary nodule measuring 11 mm . Sub carinal lymph node measuring 16 mm as well as a right low paratracheal lymph node measuring 9 mm in s hort axis. Which is not seen on prior PET/CT 02/16/2023. Musculoskeletal: No acute osseous abnormalities Soft Tissues/lymph nodes: Unremarkable. Lower neck: No significant findings. Upper Abdomen: No significant findings. IMPRESSION: 1. Increased size of subcarinal lymph node and right low paratracheal lymph node compared to 02/16/19 24 findings concerning for recurrence. 2. Improved aeration of the right lung likely representing infection/inflation on 02/16/2023. 3. Stable right upper lung pulmonary nodule measuring 10 mm given differences in measuring technique . 4. Chronic interstitial changes throughout the lungs. 5. Postsurgical changes of the right lung with rightward mediastinal shift.
== END | disposition home or self-care (01) ==
LOC: RADCTMAIN 15:00
PROVIDERS: ATTEND Internal Medicine Critical Care Medicine
DX: C34.90 Malignant neoplasm of unspecified part of unspecified bronchus or lung (principal); R91.1 Solitary pulmonary nodule; R93.89 Abnormal findings on diagnostic imaging of other specified body structures; J84.9 Interstitial pulmonary disease, unspecified
CPT/HCPCS: 71260; 36415; Q9967

== ENCOUNTER 2023-10-31 13:32 | Day surgery (SDC) | payer MEDICARE ==
[~2023-10-31 13:32] MED LIST changes: -DEXAMETHASONE SOD PHOSPHATE 4 MG/ML 1 ML VIAL IV ONE; -HYDROmorphone 0.5 MG/0.5 ML SYRINGE IVP PRN; -LIDOCAINE 1% (10MG/ML) FOR IV START INTRADERMA PRN; -ONDANSETRON 4 MG/2 ML VIAL IVP ONE; -droPERidol 5 MG/2 ML VIAL IVP ONE; +fentaNYL (PF) 50 MCG/ML 2 ML AMP IV PRN
[2023-10-31] MEDS: IV FLUID CONTINUATION 1,000 ML IV ONE (13:46)
[2023-10-31] MEDS: LACTATED RINGERS 1,000 ML IV SCH (14:15)
[2023-10-31] MEDS: DEXAMETHASONE SOD PHOSPHATE 4 MG/ML 1 ML VIAL IV ONE (14:20)
[2023-10-31] MEDS: ONDANSETRON 4 MG/2 ML VIAL IVP ONE (14:20)
[2023-10-31] MEDS ORDERED: ROCURONIUM 10 MG/ML (5 ML VIAL) IV ONE (15:22)
[2023-10-31] MEDS ORDERED: SUCCINYLCHOLINE CHLORIDE 200 MG/10 ML VIAL IV ONE (15:22)
[2023-10-31] MEDS ORDERED: NEOSTIGMINE 1 MG/ML 10 ML VIAL ONE (15:22)
[2023-10-31] MEDS ORDERED: GLYCOPYRROLATE 0.2 MG/ML 2 ML VIAL ONE (15:22)
[2023-10-31] MEDS ORDERED: fentaNYL (PF) 50 MCG/ML 2 ML AMP ONE (15:22)
[2023-10-31] MEDS ORDERED: PROPOFOL 10 MG/ML 20 ML VIAL IV ONE (15:22)
--- NOTE | 2023-10-31 16:18 | P.PCN ---
Date of Procedure: 10/31/23 Operative Findings: Preoperative Diagnosis: 1 pulmonary adenocarcinoma previous right lower lobe lobectomy 2 mediastinal lymphadenopathy Postoperative Diagnosis: 1 pulmonary adenocarcinoma previous right lower lobe lobectomy 2 mediastinal lymphadenopathy Procedure(s) Performed: 1 flexible bronchoscopy, airway inspection 2 endoscopic ultrasound (EBUS) 3 transbronchial needle aspirate of station 4R and station 7 lymph nodes Surgeon: Gregory Ledesma Estimated Blood Loss (ml): 0 Pathology: other Condition: stable Disposition: same day Operative Findings: After obtaining the consent the patient was taken to the OR suite he was intubated and put on MV by anesthesia then the scope was advanced to the ET tube until the Trachea was seen and it was normal and then the sajan appears normal then the scope advanced to the left main and TOM LB1-LB3 were seen and no endobronchial lesions were seen then the scope advanced to the lingula and the LB4 and LB5 were seen and no endobronchial lesions were seen the scope retracted and advanced to the left lower lobes LB6 to LB12 were seen one by one and no endobronchial lesions, then the scope was retracted back to the sajan and advanced to the Right main and RUL RB1 and RB2 and RB3 were seen one by one and no endobronchial lesions were seen the scope then retracted and advanced to the BI and RML RB4 and RB5 were seen and no endobronchial lesions were seen then it was retracted and advanced to the RLL and the stump was within normal limits. Then EBUS was used and the lymph nodes were examined. Direct measurement of the mediastinal lymph nodes revealed a 8 x 12 mm station 4R lymph node, and a 21 x 20 mm station 7 lymph node. I performed transbronchial needle aspirate of station 7 and a total of 5 passes FNA without major bleeding station 4 R lymph nodes were a total of 5 passes were obtained. No major bleeding and the scope was removed and taken out in total the patient was send to the floor in stable condition
[2023-10-31 16:34] VITALS: TEMP 97.2
[2023-10-31 16:49] VITALS: RESP 16
[2023-10-31 17:36] VITALS: BP 151/83; PULSE 63
== END 2023-10-31 17:48 | disposition home or self-care (01) ==
LOC: ORWHC2ENDO 13:32
PROVIDERS: ATTEND Internal Medicine Critical Care Medicine
DX: R59.0 Localized enlarged lymph nodes (principal); I10 Essential (primary) hypertension; E78.00 Pure hypercholesterolemia, unspecified; J44.9 Chronic obstructive pulmonary disease, unspecified; F41.9 Anxiety disorder, unspecified; M19.90 Unspecified osteoarthritis, unspecified site; Z85.118 Personal history of other malignant neoplasm of bronchus and lung; Z90.2 Acquired absence of lung [part of]; Z79.899 Other long term (current) drug therapy; Z88.2 Allergy status to sulfonamides
CPT/HCPCS: 31629; 31633; 31652; 88173; 88305

== ENCOUNTER → 2024-03-18 | Outpatient (CLI) | payer MEDICARE | END | disposition home or self-care (01) | LOC: LABWHC1 14:03 | PROVIDERS: ATTEND Psychiatry & Neurology Neurology | DX: G60.3 Idiopathic progressive neuropathy (principal); Z53.9 Procedure and treatment not carried out, unspecified reason ==